=== PATIENT | female | born 1980 | race African-American/Black ===

== ENCOUNTER 2019-10-23 19:42 | Emergency (ER) | payer MEDICAID ==
[~2019-10-23] VITALS: Ht 170.2 cm; Wt 74.0 kg
[2019-10-23] MEDS ORDERED: ACETAMINOPHEN 325MG TABLET PO ONE (21:45)
[2019-10-24 01:01] VITALS: BP 131/81
== END 2019-10-24 01:04 | disposition home or self-care (01) ==
LOC: ER 21:15
DX: O99.89 Other specified diseases and conditions complicating pregnancy, childbirth and the puerperium (principal); S40.022A Contusion of left upper arm, initial encounter; V43.52XA Car driver injured in collision with other type car in traffic accident, initial encounter; Y93.89 Activity, other specified; Z3A.11 11 weeks gestation of pregnancy; Y92.414 Local residential or business street as the place of occurrence of the external cause; O09.521 Supervision of elderly multigravida, first trimester
CPT/HCPCS: 73060; 73090; 76830; 76856; 99284

== ENCOUNTER 2020-01-04 08:49 | Observation (INO) | payer OTHER, MEDICAID | END 2020-01-04 13:00 | disposition home or self-care (01) | LOC: 8 EST A/PP 08:49 | PROVIDERS: ADMIT Obstetrics & Gynecology; ATTEND Obstetrics & Gynecology | DX: O26.892 Other specified pregnancy related conditions, second trimester (principal); N64.4 Mastodynia; R10.9 Unspecified abdominal pain; V89.2XXA Person injured in unspecified motor-vehicle accident, traffic, initial encounter; Y93.89 Activity, other specified; Y92.89 Other specified places as the place of occurrence of the external cause; Y99.8 Other external cause status | CPT/HCPCS: 76805; 99281; G0378 ==